=== PATIENT | female | born 1960 | race Caucasian/White ===

== ENCOUNTER 2020-06-29 14:00 | Emergency (ER) | payer BC ==
[~2020-06-29] VITALS: Ht 175.3 cm; Wt 62.7 kg
[2020-06-29 14:14] VITALS: TEMP 98.9
[2020-06-29 14:42] LABS: BASO % 0.6 % (0.0-2.0); EOS # 0.1 (0.0-0.7); GRAN # 4.1 (1.4-6.5); GRAN % 61.4 % (42.2-75.2); HEMATOCRIT 41.7 % (37.0-47.0); LYMPH # 1.9 (1.2-3.4); LYMPH % 27.9 % (20.0-51.0); MEAN CELL VOLUME 82 fl (80.0-100.0); MEAN CORPUSCULAR HEMOGLOBIN 28 pg (27.0-31.0); MEAN CORPUSCULAR HGB CONC 34 g/dl (33.0-37.0); MEAN PLATELET VOLUME 9.5 fl (7.4-10.4); MONO # 0.6 (0.1-0.6); MONO % 8.8 % (1.7-9.3); PLATELET COUNT 252 K/mm3 (130-400); RED BLOOD COUNT 5.06 M/mm3 (4.10-5.30); REDCELL DISTRIBUTION WIDTH-CV 12.9 % (11.5-14.5)
[2020-06-29 14:50] LABS: ALANINE AMINOTRANSFERASE 19 U/L (4-34); ALBUMIN 4.4 gm/dL (3.5-5.0); ALKALINE PHOSPHATASE 80 U/L (50-136); ANION GAP 7 mmol/L (7-16); AST,SGOT 30 U/L (15-37); BLOOD UREA NITROGEN 13 mg/dL (7-17); CALCIUM 10.3 mg/dL (8.4-10.2); CARBON DIOXIDE 24 mmol/L (22-30); CHLORIDE 107 mmol/L (98-107); CREATININE, serum 0.84 (0.52-1.25); GLUCOSE 98 mg/dL (74-106); POTASSIUM 3.6 mmol/L (3.4-5.0); SODIUM 138 mmol/L (137-145); TOTAL PROTEIN 7.6 gm/dL (6.4-8.2)
[2020-06-29 15:05] LABS: TROPONIN-I < 0.012 ng/mL (0.000-0.035)
[2020-06-29 15:12] LABS: PH 5 (5-8); SQUAMOUS EPITHELIAL None Seen /hpf; URINE APPEARANCE Clear; URINE BACTERIA None Seen /hpf; URINE BILIRUBIN Negative (NEGATIVE); URINE BLOOD Negative (NEGATIVE); URINE COLOR Straw; URINE GLUCOSE Negative (NEGATIVE); URINE KETONE Negative (NEGATIVE); URINE LEUKOCYTE ESTERASE Negative (NEGATIVE); URINE NITRATE Negative (NEGATIVE); URINE PROTEIN(semi-quant) Negative (NEGATIVE); URINE RBC 0-2 /hpf; URINE UROBILINOGEN Negative (NEGATIVE); URINE WBC None Seen /hpf
[2020-06-29 16:03] LABS: COLLECTION METHOD CLEAN CATCH
[2020-06-29] MEDS ORDERED: HCTZ12.5TAB PO (16:47)
[2020-06-29 17:04] VITALS: BP 166/93; PULSE 70
== END 2020-06-29 17:05 | disposition home or self-care (01) ==
LOC: COL.ER 14:00
PROVIDERS: Emergency Medicine
DX: I10 Essential (primary) hypertension (principal); Z79.1 Long term (current) use of non-steroidal anti-inflammatories (NSAID)
CPT/HCPCS: J1885; J7030

== ENCOUNTER → 2022-12-25 | Outpatient (CLI) | payer BC ==
[~2022-12-25] MED LIST: HCTZ12.5TAB PO
== END ==
LOC: MC.RAD 12:56
DX: Z12.31 Encounter for screening mammogram for malignant neoplasm of breast (principal)

== ENCOUNTER → 2022-12-26 | Outpatient (CLI) | payer BC | LOC: MC.RAD 10:11 | DX: R92.1 Mammographic calcification found on diagnostic imaging of breast (principal) ==